=== PATIENT | female | born 1965 | race African-American/Black ===

== ENCOUNTER 2016-12-11 21:46 | Emergency (ER) | payer MEDICARE, OTHER ==
[~2016-12-11] VITALS: Ht 167.6 cm; Wt 110.7 kg
[~2016-12-11 21:46] MED LIST: ACETAMINOPHEN-1 EAC1 ORAL; ACETAMINOPHEN500 M3 ORAL; ALBUTEROL SULF8.5 GM INH; AMBIEN5 MG ORAL; AMLODIPINE BESY10 MG ORAL; BENADRYL25 MG ORAL; CALCITRIOL0.25 MCG PO; CELEBREX100 MG ORAL; CIPRO250 MG/51 PO; DOCUSATE SODIU100 MG ORAL; FERROUS SULFAT325 MG ORAL; FLAGYL500 MG ORAL; FUROSEMIDE20 M1 ORAL; LABETALOL H5 MG/1 M1 IV; LABETALOL HCL100 MG ORAL; LORATADINE10 M2 PO; LORATADINE5 MG/5 M3 PO; NORCO 5-325 TA1 EACH ORAL; NORMODYNE200 MG ORAL; PENICILLIN V P500 MG PO; RANITIDINE50 MG/2 ML IV; REGLAN10 MG ORAL; RENAGEL400 MG ORAL; RENVELA2.4 GM ORAL; RENVELA800 MG ORAL; SENSIPAR30 MG ORAL; TRAMADOL HCL50 MG ORAL; TRAZODONE HCL150 MG ORAL; UNOBMED; ZESTRIL10 MG ORAL
[2016-12-11] MEDS ORDERED: HYDROmorphone 1mg/ml Carpuject IM ONE (22:15)
[2016-12-11] MEDS ORDERED: HYDROCODON-ACE1 EA15 ORAL (22:17)
--- NOTE | 2016-12-11 22:18 | Emergency Room Report ---
History of Present Illness General Chief Complaint: Lower Extremity Injury Source: Patient Present Illness HPI Is a 50-year-old female with a BMI of 39. She has history of renal failure hemodialysis. She presents with chief complaint of left knee pain. Is a chronic problem. She R. he seen Dr. Everett, orthopedic DrFrancisco, who recommended surgery. Her primary care told her to hold off. Patient presents with chief complaint of left knee pain his been ongoing for 4 days. No trauma. Throbbing in nature. No relief with ibuprofen. No relief with aspirin. No fever or chills. No swelling. Worse with walking. Similar symptom in the past. Allergies: Coded Allergies: NO KNOWN ALLERGIES (Unverified Allergy, Unknown, 06/20/15) Patient History Past Medical History: see triage record, old chart reviewed, renal disease, dialysis Past Surgical History: other Pertinent Family History: none Social History: Denies: smoking Last Menstrual Period: NA Now: No Immunizations: other Reviewed Nursing Documentation: PMH: Agreed, PSxH: Agreed Nursing Documentation-PMH Hx Hypertension: Yes Hx Pacemaker: No - SLEEP APNEA Hx Cancer: No Hx Gastrointestinal Problems: Yes - GERD Hx Dialysis: Yes - MWF Hx Neurological Problems: Yes - sleep apnea Hx Dizziness: Yes Hx Headaches: Yes Hx Weakness: Yes Hx Fatigue: Yes Review of Systems Eye: Denies: blurred vision, eye pain ENT: Denies: ear pain, nose congestion, throat swelling Respiratory: Denies: cough, shortness of breath Cardiovascular: Denies: chest pain, palpitations Gastrointestinal: Denies: abdominal pain, diarrhea, nausea, vomiting Musculoskeletal: Reports: joint pain, Denies: back pain Skin: Denies: rash Neurological: Denies: headache, numbness Endocrine: Denies: increased thirst, increased urine Hematologic/Lymphatic: Denies: easy bruising All Other Systems: negative except mentioned in HPI Physical Exam Vital Signs Date Time Temp Pulse Resp B/P Pulse Ox O2 Delivery O2 Flow Rate FiO2 12/11/16 21:48 97.9 84 18 115/62 98 Room Air vitals normal Sp02 EP Interpretation: reviewed, normal General Appearance: well appearing, no apparent distress, alert Head: normocephalic, atraumatic Eyes: bilateral eye EOMI, bilateral eye PERRL ENT: hearing grossly normal, normal pharynx Neck: full range of motion, supple, no meningismus Respiratory: chest non-tender, lungs clear, normal breath sounds Cardiovascular #1: regular rate, rhythm, no murmur Gastrointestinal: normal bowel sounds, non tender, no mass, no organomegaly, no bruit, non-distended Musculoskeletal: back normal, normal range of motion, other - Diffuse tenderness e left knee. No edema. No warmth. No calf tenderness. Psychiatric: mood/affect normal Skin: warm/dry Medical Decision Making Diagnostic Impression: Primary Impression: Osteoarthritis Qualified Codes: M17.12 - Unilateral primary osteoarthritis, left knee ER Course Patient with exacerbation of her osteoarthritis. No evidence of septic joint. Notice of infection. No DVT. We'll discharge him. Last Vital Signs Date Time Temp Pulse Resp B/P Pulse Ox O2 Delivery O2 Flow Rate FiO2 12/11/16 21:48 97.9 84 18 115/62 98 Room Air Status: improved Disposition: HOME, SELF-CARE Condition: Stable Scripts Hydrocodone/Acetaminophen 5-325* (HYDROCODONE/ACETAMINOPHEN 5-325*) 1 Each Tablet 1 TAB ORAL Q6H Y for For Pain, #20 TAB 0 Refills Prov: REGULO ANAND M.D. 12/11/16 Additional Instructions: Followup with your DrFrancisco 7 days. Return if worse. You may benefit from physical therapy REGULO ANAND M.D. December 11, 2016 22:18
[2016-12-11 22:41] VITALS: BP 115/62
== END 2016-12-11 22:45 | disposition home or self-care (01) ==
LOC: EMR 22:29
DX: M17.12 Unilateral primary osteoarthritis, left knee (principal); I10 Essential (primary) hypertension; G47.30 Sleep apnea, unspecified; I12.0 Hypertensive chronic kidney disease with stage 5 chronic kidney disease or end stage renal disease; N18.6 End stage renal disease; Z99.2 Dependence on renal dialysis; K21.9 Gastro-esophageal reflux disease without esophagitis
CPT/HCPCS: 96372; 99283; J1170

== ENCOUNTER → 2016-12-19 | Outpatient (RCR) | payer MEDICARE, OTHER ==
[~2016-12-19] MED LIST changes: +HYDROCODON-ACE1 EA15 ORAL
== END | disposition home or self-care (01) ==
LOC: PTY 13:00
DX: M25.569 Pain in unspecified knee (principal)
CPT/HCPCS: 97110; 97112; 97162; G8978; G8979